=== PATIENT | female | born 1985 | race Asian ===

== ENCOUNTER 2019-05-23 14:40 | Inpatient (IN) | payer BC, OTHER ==
[2019-05-23 16:05] VITALS: BMI 25.4
[2019-05-23 17:03] LABS: BASO % 0.4 % (0-2.0); EOS % 0.7 % (0-4.5); HEMATOCRIT 34.7 % (32.4-45.2); HEMOGLOBIN 11.3 GM/dL (10.7-15.3); LYMPH % 11.4 % (8-40); MCH 26.6 pg (25.7-33.7); MCHC 32.6 g/dl (32.0-36.0); MEAN CELL VOLUME 81.6 fl (80-96); MEAN PLT VOLUME 7.8 fl (7.5-11.1); MONO % 6.6 % (3.8-10.2); NEUT % 80.9 % (42.8-82.8); PLATELET COUNT 262 K/MM3 (134-434); RBC 4.25 M/mm3 (3.60-5.2); RDW 24.7 % (11.6-15.6); WHITE BLOOD COUNT 9.5 K/mm3 (4.0-10.0)
[2019-05-23 17:22] LABS: INR 0.89 (0.83-1.09); PROTHROMBIN TIME (PATIENT) 10.5 SEC (9.7-13.0)
[2019-05-23 17:25] LABS: ACTIVATED PTT 28.6 SECONDS (25.2-36.5)
[2019-05-23 17:26] LABS: BLOOD UREA NITROGEN 11.4 mg/dL (7-18); CALCIUM 8.3 mg/dL (8.5-10.1); CREATININE 0.5 mg/dL (0.55-1.3); POTASSIUM 3.9 mmol/L (3.5-5.1)
[2019-05-23] MEDS ORDERED: ELECTROLYTE-148 SOLN 500 ML IV SCH (18:30)
[2019-05-23] MEDS ORDERED: CITRIC ACID/SODIUM CITRATE 30 ML UNIT-DOSE CUP PO ONE (18:30)
[2019-05-23] MEDS ORDERED: ELECTROLYTE-148 SOLN 1,000 ML IV SCH (19:00)
[2019-05-23 19:09] LABS: ANISOCYTOSIS 3+; MACROCYTOSIS 0
--- NOTE | 2019-05-23 20:24 | HP ---
Past Medical History - Admission Chief Complaint: iugr 5 %, twin for c section History of Present Illness: none History Source: Patient Limitations to Obtaining History: No Limitations - Past Medical History PARAKEET RAISER: No: Alzheimer's, CVA, Dementia, Migraine, Multiple Sclerosis, Peripheral Neuropathy, Parkinson's, Seizure, Syncope, TIA, Vertigo, Other Cardiovascular: No: AFIB, Aneurysm, Aortic Insufficiency, Aortic Stenosis, CAD, CHF, Deep Vein Thrombosis, HTN, Hyperlipdemia, CA, Mitral Insufficiency, Mitral Stenosis, Murmur, Pulmonary Hypertension, Other Pulmonary: No: Asthma, Bronchitis, Cancer, COPD, O2 Dependent, Pneumonia, Previously Intubated, Pulmonary Embolus, Pulmonary Fibrosis, Sleep Apnea, Other Gastrointestinal: No: Ascites, Cancer, Constipation, Crohn's Disease, Diverticulitis, Diverticulosis, Esophageal Varices, Gastritis, GERD, GI Bleed, Hemorrhoids, Hiatal Hernia, Inflamatory Bowel Disease, Irritable Bowel Disease, Pancreatitis, Peptic Ulcer Disease, Ulcerative Colitis, Other Hepatobiliary: No: Cirrhosis, Cholelithiasis, Cholecystitis, Choledocholithiasis , Hepatitis A, Hepatitis B, Hepatitis C, Other Renal/: No: Renal Failure, Renal Inusuff, BPH, Cancer, Hematuria, Hemodialysis , Neurogenic Bladder, Renal Calculi, UTI, Other Reproductive: No: Ectopic , Endometriosis, Fibroids, PID, Polycystic Ovary Syndrome, Postmenopausal, Other ...: 1 ...Para: 0 ...Term: 0 ...: 0 ...Spon : 0 ...Induced : 0 ...Multiple Gestation: 0 ...LMP: 09/17/18 ... Weeks Gestation by Dates: 34.6 ...EDC by Dates: 06/28/19 ...EDC by Sono: 06/27/19 Heme/Onc: No: Anemia, B12 Deficiency, Bleeding Disorder, Cancer, Current Chemotherapy, Current Radiation Therapy, Hemochromatosis, Hypercoaguable State, Myeloproliferative Synd, Sickle Cell Disease, Sickle Cell Trait, Thrombocytopenia, Other Infectious Disease: No: AIDS, C-Diff, Herpes Zoster, HIV, MRSA, STD's, Tuberculosis, VREF, Other Psych: No: Addictions, Anxiety, Bipolar, Depression, Panic, Psychosis, Schizophrenia, Other Musculoskeletal: No: Bursitis, Chronic low back pain, Hemiparesis, Hemiplegia, Osteoarthritis, Paraplegia, Other Rheumatology: No: Fibromyalgia, Gout, Lupus, Rheumatoid Arthritis, Sarcoidosis, Vasculitis, Other ENT: No: Allergic Rhinitis, Sinusitis, Other Endocrine: No: Carlos's Disease, Gravelly's Disease, Diabetes Insipidus, Diabetes Mellitus, Hyperparathyroidism, Hyperthyroidism, Hypothyroidism, Osteopenia, SIADH, Other Dermatology: No: Basal Cell, Cellulitis, Eczema, Melanoma, Psoriasis, Squamous Cell, Other - Past Surgical History Past Surgical History: No: None, AAA Repair, AICD, Amputation, Appendectomy, Arthrosocopy, AV Fistula/Graft, Bariatric Surgery, Breast Biopsy, Bypass, CABG, Carotid Endarterectomy, Cataract Removal, Cholecystectomy, Colectomy, Colonoscopy, Colostomy, Craniotomy, , Cystectomy, Hernia Repair, Hysterectomy, Ileal Conduit, Ileosotomy, Joint Replacement, Kidney Transplant, Laminectomy, Liver Transplant, Mastectomy, Nephrectomy, Oopherectomy, Orchiectomy, Permanent Pacemaker, Prostatectomy, Splenectomy, Stent, Thoracotomy , TURP, Tonsillectomy, Tubal Ligation, Upper Endoscopy, Valve Replacement, Vasectomy, Vein Stripping/Ligation Hx Myomectomy: No Hx Transabdominal Cerclage: No - Advance Directives Advance Directives: Yes: Health Care Proxy - Smoking History Smoking history: Never smoked Have you smoked in the past 12 months: No - Alcohol/Substance Use Hx Alcohol Use: No History of Substance Use: reports: None - Social History Usual Living Arrangement: Yes: With Spouse Do you think of yourself as: Straight/Heterosexual ADL: Independent History of Recent Travel: No Home Medications - Allergies Allergies/Adverse Reactions: Allergies Allergy/AdvReac Type Severity Reaction Status Date / Time No Known Allergies Allergy Verified 05/07/19 14:45 - Home Medications Home Medications: Ambulatory Orders Ferrous Sulfate [Feosol] 325 mg PO DAILY 05/07/19 Pnv No.95/Ferrous Fum/Folic AC [ Vitamin Tablet] 1 each PO DAILY Family Medical History Family History: Denies Review of Systems - Review of Systems Constitutional: reports: No Symptoms Eyes: reports: No Symptoms HENT: reports: No Symptoms Neck: reports: No Symptoms Cardiovascular: reports: No Symptoms Respiratory: reports: No Symptoms Gastrointestinal: reports: No Symptoms Genitourinary: reports: No Symptoms Breasts: reports: No Symptoms Reported Musculoskeletal: reports: No Symptoms Integumentary: reports: No Symptoms Neurological: reports: No Symptoms Endocrine: reports: No Symptoms Hematology/Lymphatic: reports: No Symptoms Psychiatric: reports: No Symptoms Physical Exam - Maternity Vital Signs: Vital Signs Temperature 98.7 F 05/23/19 19:47 Pulse Rate 92 H 05/23/19 19:47 Respiratory Rate 05/23/19 19:47 Blood Pressure 129/77 05/23/19 19:47 O2 Sat by Pulse Oximetry (%) Constitutional: Yes: Well Nourished, No Distress, Calm Eyes: Yes: WNL, Conjunctiva Clear, EOM Intact HENT: Yes: WNL, Atraumatic, Normocephalic Neck: Yes: WNL, Supple, Trachea Midline Cardiovascular: Yes: WNL, Regular Rate and Rhythm Lungs: Clear to auscultation Breast(s): Yes: WNL - Abdominal Exam/OB Number of Fetuses: Multiple Presentation: Vertex, Breech Contractions: Yes Regularity: Regular Intensity: Mild/Mod Monitor Mode: External Heart Rate Location: [facility] Category: I Accelerations: Uniform Decelerations: None - Vaginal Exam/OB Vaginal Bleediing: No Speculum Exam: No Dilatation (cm): 1 Effacement (%): 50 Amniotic Membrane Status: Intact Presentation: Jj Breech Station: -2 - Physical Exam Musculoskeletal: Yes: WNL Extremities: Yes: WNL Edema: Yes Edema: LUE: 1+, RUE: 1+, LLE: 1+, RLE: 1+ Integumentary: Yes: WNL Deep Tendon Reflex Grade: Normal +2 ...Motor Strength: WNL Psychiatric: Yes: WNL, Alert, Oriented - Labs Lab Results: CBC, BMP 05/23/19 16:10 05/23/19 16:10 Hemorrhage Risk Assessment - Risk Factors Medium Risk Factors: Yes: Multiple gestation High Risk Factors: Yes: None Risk Score: 1 Risk Level: Medium Risk Assessment/Plan for c section per dr jackman, iugr 4 %, no growth x 1to 2 weeks
[2019-05-23] MEDS ORDERED: morphine SULFATE/PF 0.5 MG/ML (2cc Syringe - QUVA) ONE (21:52)
[2019-05-23] MEDS ORDERED: KETOROLAC TROMETHAMINE 30 MG/1 ML VIAL ONE (21:53)
[2019-05-23] MEDS ORDERED: PHENYLEPHRINE HCL 10 MG/1 ML SINGLE DOSE VIAL ONE (21:53)
[2019-05-23] MEDS ORDERED: OXYTOCIN 10 UNITS/ML VIAL ONE (21:53)
[2019-05-23] MEDS ORDERED: morphine SULFATE/PF 0.5 MG/ML (2cc Syringe - QUVA) EP ONE (22:00)
[2019-05-23] MEDS ORDERED: ceFAZolin SODIUM 1 GM VIAL ONE (22:08)
[2019-05-23] MEDS ORDERED: OXYTOCIN 20 UNITS in 0.9% NS 20 UNIT/1,000 ML INFUS.BAG IV ONE (23:05)
[2019-05-23] MEDS ORDERED: ONDANSETRON 4 MG/2 ML VIAL IVPUSH PRN (23:09)
[2019-05-23] MEDS ORDERED: ACETAMINOPHEN 1000 MG/100 ML VIAL (NON FORMULARY) IVPB ONE (23:11)
[2019-05-23] MEDS ORDERED: LACTATED RINGERS SOLUTION 1,000 ML IV SCH (23:15)
[2019-05-23] MEDS ORDERED: oxyCODONE HCL 5 MG TABLET PO PRN ×2 (23:25)
[2019-05-23] MEDS ORDERED: METHYLERGONOVINE MALEATE 0.2 MG/1 ML AMP IM PRN (23:25)
[2019-05-23] MEDS ORDERED: SENNOSIDES/DOCUSATE COMBO (SENNA PLUS) TABLET (UD) PO PRN (23:25)
[2019-05-23] MEDS ORDERED: IBUPROFEN 800 MG/8 ML IJ IVPB PRN (23:25)
--- NOTE | 2019-05-23 23:25 | OP ---
Operative Note - Note: Operative Date: 05/23/19 Pre-Operative Diagnosis: discordant, iugr, twin. malpresentation Operation: primary lt c s Findings: vx, double footling breech Post-Operative Diagnosis: Same as Pre-op Surgeon: Sammy Nunez Mining Detail Draftsperson: Franklin Paz Anesthesiologist/WOOD PATTERN MAKER: Janie Castro Anesthesia: Spinal Estimated Blood Loss (mls): 700 (no complications, ) Operative Report Dictated: Yes
[2019-05-23] MEDS ORDERED: OXYTOCIN 20 UNITS in 0.9% NS 20 UNIT/1,000 ML INFUS.BAG IV SCH (23:30)
[2019-05-24] MEDS ORDERED: ACETAMINOPHEN INJECTION 100 ML IVPB ONE (00:24)
[2019-05-24 08:08] LABS: BASO % 0.4 % (0-2.0); EOS % 0.4 % (0-4.5); HEMATOCRIT 30.9 % (32.4-45.2); HEMOGLOBIN 10.2 GM/dL (10.7-15.3); LYMPH % 11.4 % (8-40); MCH 26.8 pg (25.7-33.7); MCHC 33.1 g/dl (32.0-36.0); MEAN CELL VOLUME 81.1 fl (80-96); MEAN PLT VOLUME 7.5 fl (7.5-11.1); NEUT % 81.8 % (42.8-82.8); PLATELET COUNT 214 K/MM3 (134-434); RBC 3.81 M/mm3 (3.60-5.2); RDW 24.4 % (11.6-15.6); WHITE BLOOD COUNT 10.7 K/mm3 (4.0-10.0)
--- NOTE | 2019-05-24 08:52 | PN ---
Progress Note (short form) - Note Progress Note: Post op day#1.S/P C Section under spinal anesthesia with Duramorph uneventful.Patient stable and has little pain for which she is on medication.No any anesthesia related problem.Patient Dc from the anesthesia care.
[2019-05-24 09:01] LABS: RPR NONREACTIVE (NONREACTIVE)
[2019-05-24] MEDS: ENOXAPARIN NA (PORCINE) 40 MG/0.4 ML DISP.SYRIN SQ SCH (10:02)
[2019-05-24] MEDS: SIMETHICONE 80 MG TAB.CHEW (FP) PO PRN ×2 (12:20→17:14)
[2019-05-24] MEDS: ACETAMINOPHEN 325 MG TABLET (FP) PO PRN ×2 (12:20→17:14)
[2019-05-24] MEDS: IBUPROFEN 600 MG TABLET (FP) PO PRN (17:14)
--- NOTE | 2019-05-24 17:18 | PN ---
Post Progress Note Post Day: 1 Type of Delivery: Primary C/S Vital Signs: Vital Signs Temperature 98.0 F 05/24/19 06:00 Pulse Rate 91 H 05/24/19 06:00 Respiratory Rate 18 05/24/19 09:00 Blood Pressure 127/75 05/24/19 06:00 O2 Sat by Pulse Oximetry (%) 100 05/23/19 23:50 Breast Exam: Yes: Soft Uterus: Yes: Fundus Firm, Fundus below umbilicus, Non-tender Incision: Yes: Dressing dry and intact, Sutures intact Abdomen/GI: Yes: Abdomen soft, Passing flatus, Tolerating PO Lochia: Yes: Serosa Lochia, amount: Small Extremities: Yes: Calves non-tender Perineum: Yes: Intact Activity: Ambulating (oob as much as possible ) - Labs Labs: CBC WBC 10.7 K/mm3 (4.0-10.0) H 05/24/19 06:55 RBC 3.81 M/mm3 (3.60-5.2) 05/24/19 06:55 Hgb 10.2 GM/dL (10.7-15.3) L 05/24/19 06:55 Hct 30.9 % (32.4-45.2) L 05/24/19 06:55 MCV 81.1 fl (80-96) 05/24/19 06:55 MCH 26.8 pg (25.7-33.7) 05/24/19 06:55 MCHC 33.1 g/dl (32.0-36.0) 05/24/19 06:55 RDW 24.4 % (11.6-15.6) H 05/24/19 06:55 Plt Count 214 K/MM3 (134-434) 05/24/19 06:55 MPV 7.5 fl (7.5-11.1) 05/24/19 06:55 Absolute Neuts (auto) 8.8 K/mm3 (1.5-8.0) H 05/24/19 06:55 Neutrophils % 81.8 % (42.8-82.8) 05/24/19 06:55 Lymphocytes % 11.4 % (8-40) 05/24/19 06:55 Monocytes % 6.0 % (3.8-10.2) 05/24/19 06:55 Eosinophils % 0.4 % (0-4.5) 05/24/19 06:55 Basophils % 0.4 % (0-2.0) 05/24/19 06:55 Nucleated RBC % 0 % (0-0) 05/24/19 06:55 Hypochromia 0 05/23/19 16:10 Polychromasia 3+ 05/23/19 16:10 Poikilocytosis 0 05/23/19 16:10 Anisocytosis 3+ 05/23/19 16:10 Microcytosis 3+ 05/23/19 16:10 Macrocytosis 0 05/23/19 16:10
--- NOTE | 2019-05-24 18:33 | OP ---
DATE OF OPERATION: 05/23/2019 PREOPERATIVE DIAGNOSIS: Discordant intrauterine growth retardation twins, malpresentation, vertex and breech, and twin in labor ahsan every 3 minutes. PROCEDURE: Primary low transverse section. POSTOPERATIVE DIAGNOSIS: Vertex and double footling breech presentation and intrauterine growth retardation discordant. SURGEON: Sammy Nunez MD MECHANICAL DESIGN TECHNICIAN: MARÍA Monroe. No other doctors available in house. ANESTHESIA: Brandon Foster MD. Spinal anesthesia. INDICATIONS: A 33-year-old female patient twin gestation, dichorionic, diamniotic twin has been followed up with perinatologist, Dr. Aparicio, and patient has been known to have an IUGR baby less than 10 percentile; however, in the past 2-3 weeks, twin A has not grown in the past 2 weeks and remains the same, less than 5%. According to the perinatologist, since the baby twin A was not growing and was discordant then patient was advised to be delivered, and patient is already having signs of a premature labor with ahsan. Patient 2 weeks ago was ahsan already, so patient was in the hospital at that time. Patient received betamethasone for maturity so patient was prepped with lung optimization. Ketamine was sent up today from the perinatologist's office, patient was found to have contractions every 3 minutes, and patient does feel some of these contractions. Pain level is 6/10 now, so decision was made to take the patient to the OR as soon as possible for a C section; however, at this time, there is no other doctor as data control assistant available, but the patient is in need of urgency to be done as soon as possible, so Franklin DANIEL was called in, and he came for assist the section. DESCRIPTION OF PROCEDURE: Patient was placed on the operating room in supine position after the spinal anesthesia was obtained then patient's abdomen and pelvis were prepped and draped in the usual sterile manner. A Pfannenstiel incision was made. Incision was made through the skin and subcutaneous tissue until the fascia was nicked in the midline. The fascia was extended bilaterally. Intraperitoneal cavity was entered. Bladder flap was not created. Low transverse segment of the uterus was entered. Baby twin A was delivered from vertex presentation. Baby was handed over to borematic operator after umbilical cord doubly clamped and cut. A second baby artificial rupture of membranes was done. At this time, twin B was extracted by double-footling breech presentation, and the baby was handed over to borematic operator after umbilical cord doubly clamped and cut. Twin B double-footling breech presentation. The head had a little difficulty being extracted out of the uterus probably due to the contraction of the uterus, but no trauma was done and baby's head came out after slight maneuver process. No complications. Patient tolerated procedure well. Baby was given to the borematic operator after umbilical cord doubly clamped and cut, and the placenta was removed. Uterus closed in single layer, first layer interlocking Vicryl sutures. Good hemostasis. Both gutters were clean. Both ovaries, fallopian tubes, uterus are within normal limits. No complications. Patient tolerated the procedure well. Both gutters were clean. Draining clear urine. Blood loss about 700 mL. Peritoneum was closed. Fascia was closed. Skin was closed. Transferred to recovery room in stable condition. MD CARLIE SELLERS/[id number]
[2019-05-24] MEDS ORDERED: BISACODYL 10 MG SUPP.RECT RC PRN (23:26)
[2019-05-25] MEDS: SIMETHICONE 80 MG TAB.CHEW (FP) PO PRN ×3 (03:54→20:31)
[2019-05-25] MEDS: ACETAMINOPHEN 325 MG TABLET (FP) PO PRN ×3 (03:54→20:31)
[2019-05-25] MEDS: IBUPROFEN 600 MG TABLET (FP) PO PRN ×3 (03:54→20:31)
[2019-05-25] MEDS: ENOXAPARIN NA (PORCINE) 40 MG/0.4 ML DISP.SYRIN SQ SCH (10:00)
--- NOTE | 2019-05-25 14:56 | PN ---
Post Progress Note Post Day: 2 Type of Delivery: Primary C/S Vital Signs: Vital Signs Temperature 98.1 F 05/25/19 09:33 Pulse Rate 81 05/25/19 09:33 Respiratory Rate 18 05/25/19 09:33 Blood Pressure 125/86 05/25/19 09:33 O2 Sat by Pulse Oximetry (%) 100 05/23/19 23:50 Breast Exam: Yes: Soft Uterus: Yes: Fundus Firm, Fundus below umbilicus Incision: Yes: Dressing dry and intact, Sutures intact Abdomen/GI: Yes: Abdomen soft, Tolerating PO Lochia: Yes: Serosa Lochia, amount: Small Extremities: Yes: Calves non-tender Perineum: Yes: Intact Activity: Ambulating - Labs Labs: CBC WBC 10.7 K/mm3 (4.0-10.0) H 05/24/19 06:55 RBC 3.81 M/mm3 (3.60-5.2) 05/24/19 06:55 Hgb 10.2 GM/dL (10.7-15.3) L 05/24/19 06:55 Hct 30.9 % (32.4-45.2) L 05/24/19 06:55 MCV 81.1 fl (80-96) 05/24/19 06:55 MCH 26.8 pg (25.7-33.7) 05/24/19 06:55 MCHC 33.1 g/dl (32.0-36.0) 05/24/19 06:55 RDW 24.4 % (11.6-15.6) H 05/24/19 06:55 Plt Count 214 K/MM3 (134-434) 05/24/19 06:55 MPV 7.5 fl (7.5-11.1) 05/24/19 06:55 Absolute Neuts (auto) 8.8 K/mm3 (1.5-8.0) H 05/24/19 06:55 Neutrophils % 81.8 % (42.8-82.8) 05/24/19 06:55 Lymphocytes % 11.4 % (8-40) 05/24/19 06:55 Monocytes % 6.0 % (3.8-10.2) 05/24/19 06:55 Eosinophils % 0.4 % (0-4.5) 05/24/19 06:55 Basophils % 0.4 % (0-2.0) 05/24/19 06:55 Nucleated RBC % 0 % (0-0) 05/24/19 06:55 Hypochromia 0 05/23/19 16:10 Polychromasia 3+ 05/23/19 16:10 Poikilocytosis 0 05/23/19 16:10 Anisocytosis 3+ 05/23/19 16:10 Microcytosis 3+ 05/23/19 16:10 Macrocytosis 0 05/23/19 16:10 Assessment/Plan doing well , oob as much as possible
[2019-05-26] MEDS: IBUPROFEN 600 MG TABLET (FP) PO PRN ×5 (00:26→21:22)
[2019-05-26] MEDS: SIMETHICONE 80 MG TAB.CHEW (FP) PO PRN ×5 (00:26→21:22)
[2019-05-26] MEDS: ACETAMINOPHEN 325 MG TABLET (FP) PO PRN ×5 (00:27→21:22)
[2019-05-26] MEDS: ENOXAPARIN NA (PORCINE) 40 MG/0.4 ML DISP.SYRIN SQ SCH (09:26)
--- NOTE | 2019-05-26 17:35 | PN ---
Post Progress Note Post Day: 3 Type of Delivery: Primary C/S Vital Signs: Vital Signs Temperature 97.6 F 05/26/19 10:00 Pulse Rate 87 05/26/19 10:00 Respiratory Rate 20 05/26/19 10:00 Blood Pressure 113/65 05/26/19 10:00 O2 Sat by Pulse Oximetry (%) 100 05/23/19 23:50 Breast Exam: Yes: Soft Uterus: Yes: Fundus Firm, Fundus below umbilicus, Non-tender Incision: Yes: Dressing dry and intact, Sutures intact Abdomen/GI: Yes: Abdomen soft, Passing flatus, Tolerating PO Lochia: Yes: Serosa Lochia, amount: Small Extremities: Yes: Calves non-tender Perineum: Yes: Intact Activity: Ambulating (dcpt home tomorrow ) - Labs Labs: CBC WBC 10.7 K/mm3 (4.0-10.0) H 05/24/19 06:55 RBC 3.81 M/mm3 (3.60-5.2) 05/24/19 06:55 Hgb 10.2 GM/dL (10.7-15.3) L 05/24/19 06:55 Hct 30.9 % (32.4-45.2) L 05/24/19 06:55 MCV 81.1 fl (80-96) 05/24/19 06:55 MCH 26.8 pg (25.7-33.7) 05/24/19 06:55 MCHC 33.1 g/dl (32.0-36.0) 05/24/19 06:55 RDW 24.4 % (11.6-15.6) H 05/24/19 06:55 Plt Count 214 K/MM3 (134-434) 05/24/19 06:55 MPV 7.5 fl (7.5-11.1) 05/24/19 06:55 Absolute Neuts (auto) 8.8 K/mm3 (1.5-8.0) H 05/24/19 06:55 Neutrophils % 81.8 % (42.8-82.8) 05/24/19 06:55 Lymphocytes % 11.4 % (8-40) 05/24/19 06:55 Monocytes % 6.0 % (3.8-10.2) 05/24/19 06:55 Eosinophils % 0.4 % (0-4.5) 05/24/19 06:55 Basophils % 0.4 % (0-2.0) 05/24/19 06:55 Nucleated RBC % 0 % (0-0) 05/24/19 06:55 Hypochromia 0 05/23/19 16:10 Polychromasia 3+ 05/23/19 16:10 Poikilocytosis 0 05/23/19 16:10 Anisocytosis 3+ 05/23/19 16:10 Microcytosis 3+ 05/23/19 16:10 Macrocytosis 0 05/23/19 16:10
--- NOTE | 2019-05-26 17:39 | DS ---
Physical Exam-HOE RUNNER Vital Signs: Vital Signs Temperature 97.6 F 05/26/19 10:00 Pulse Rate 87 05/26/19 10:00 Respiratory Rate 20 05/26/19 10:00 Blood Pressure 113/65 05/26/19 10:00 O2 Sat by Pulse Oximetry (%) 100 05/23/19 23:50 Constitutional: Yes: Well Nourished, No Distress, Calm Eyes: Yes: WNL, Conjunctiva Clear, EOM Intact HENT: Yes: WNL, Atraumatic, Normocephalic Neck: Yes: WNL, Supple, Trachea Midline Cardiovascular: Yes: WNL, Regular Rate and Rhythm Respiratory: Yes: WNL, Regular, CTA Bilaterally Gastrointestinal: Yes: WNL, Normal Bowel Sounds, Soft ...Rectal Exam: Yes: WNL Renal/: Yes: WNL Pelvis: Yes: WNL External Genitalia: Yes: Normal Internal Exam Deferred: Yes Vaginal Exam: Yes: Normal Cervix: Yes: Normal Uterus: Yes: Normal Adnexa: Normal: Bilateral ....Post : Yes: Uterus firm, Uterus non-tender Breast(s): Yes: WNL Musculoskeletal: Yes: WNL Extremities: Yes: WNL Edema: Yes Edema: LUE: 1+, RUE: 1+, LLE: 1+, RLE: 1+ Integumentary: Yes: WNL Wound/Incision: Yes: Clean/Dry, Well Approximated Neurological: Yes: WNL, Alert, Oriented ...Motor Strength: WNL Psychiatric: Yes: WNL, Alert, Oriented Labs: CBC, BMP 05/24/19 06:55 05/23/19 16:10 Delivery - Delivery Section: Primary Type of Anesthesia: Spinal Episiotomy/Laceration: None EBL (cc): 700 Delivery, Single - Spencer Feeding Plan Initial Plan: Exclusive throughout hospitalization Delivery, Multiple Births - Stages of Labor Placenta/Membranes "A" Date: 05/23/19 Time: 22:19 Delivery Baby "B" Date: 05/23/19 Time: 22:19 - Condition of Multiple Births Spencer 1 (A) Roller Pneumatic/Satellite Communications Operator Present: Yes Roller Pneumatic: Carie Carballo Infant Gender: Female Weight: 1.588 kg Position: Left, OA Total Hours ROM (HRS/MINS): 4min 2 (B) Roller Pneumatic/Satellite Communications Operator Present: Yes Roller Pneumatic: Carie Carballo Gender: Male Weight: 2.183 kg Total Hours ROM (HRS/MINS): 4min - 1 (A) Score: 9 1 (A) 1 Minute Score: 9 Spencer 1 (A) 5 Minutes Score: 9 2 (B) 1 Minute Score: 7 Spencer 2 (B) 5 Minutes Score: 9 Discharge Summary Problems reviewed: Yes Reason For Visit: TWINS Procedures: Principal: primary lt c s Other Procedures: none Hospital Course: uneventful Health Concerns: none Plan of Treatment: oob as much as possible Goals: return to work in 8 weeks Condition: Good - Instructions Diet, Activity, Other Instructions: Physical activity Resume your normal everyday activity as tolerated no heavy lifting or exercise until seen by your surgeon. You may walk unlimited renate of and climb stairs. You may resume driving the car when you feel safe and comfortable behind the wheel. No sexual activity as instructed. Wound care If you have a bandage, leave it on, and keep dry for 48-72 hours. After that time discard the outer bandage. If they are tapes on the skin under the out of bandage leave them in place. They will peel off in the next 7 to 10 days. Do Not Peel them off. You may shower the day after surgery. If there are tapes present on the skin, you may shower over them. Diet There are no dietary restrictions. Eat healthy, high-fiber foods. Drink 6 to 8 glasses of liquid each day. This will assist in keeping your bowels are regular. Pain management You may take Tylenol or acetaminophen or Ibuprofen (for example, Motrin, Advil etc.) from my pain prescription medication is ordered should be taken as prescribed for moderate to severe pain. Call MD for any of the following: call dr argueta for 2 weeks appointment Severe pain not relieved by medication Fever of 101 or higher Excessive bleeding or drainage on dressing Inability to urinate Disposition: HOME - Home Medications Comprehensive Discharge Medication List: Ambulatory Orders Ferrous Sulfate [Feosol] 325 mg PO DAILY 05/07/19 Pnv No.95/Ferrous Fum/Folic AC [ Vitamin Tablet] 1 each PO DAILY Prescription Drug Monitoring Program (I-STOP) results: I-STOP reviewed and no issues identified
[2019-05-26 21:13] VITALS: TEMP 98.4
[2019-05-27] MEDS: SIMETHICONE 80 MG TAB.CHEW (FP) PO PRN (08:17)
[2019-05-27] MEDS: IBUPROFEN 600 MG TABLET (FP) PO PRN (08:17)
[2019-05-27] MEDS: ACETAMINOPHEN 325 MG TABLET (FP) PO PRN (08:18)
[2019-05-27] MEDS: ENOXAPARIN NA (PORCINE) 40 MG/0.4 ML DISP.SYRIN SQ SCH (09:55)
[2019-05-27 11:27] VITALS: BP 118/59; PULSE 93
--- NOTE | 2019-05-27 14:42 | PN ---
Post Progress Note Post Day: 4 Type of Delivery: Primary C/S Vital Signs: Vital Signs Temperature 98.4 F 05/27/19 10:00 Pulse Rate 93 H 05/27/19 10:00 Respiratory Rate 18 05/27/19 10:00 Blood Pressure 118/59 L 05/27/19 10:00 O2 Sat by Pulse Oximetry (%) 100 05/23/19 23:50 Breast Exam: Yes: Soft Uterus: Yes: Fundus Firm Incision: Yes: Dressing dry and intact, Sutures intact Abdomen/GI: Yes: Abdomen soft, Passing flatus, Tolerating PO Lochia: Yes: Serosa Lochia, amount: Small Extremities: Yes: Calves non-tender Perineum: Yes: Intact Activity: Ambulating - Labs Labs: CBC WBC 10.7 K/mm3 (4.0-10.0) H 05/24/19 06:55 RBC 3.81 M/mm3 (3.60-5.2) 05/24/19 06:55 Hgb 10.2 GM/dL (10.7-15.3) L 05/24/19 06:55 Hct 30.9 % (32.4-45.2) L 05/24/19 06:55 MCV 81.1 fl (80-96) 05/24/19 06:55 MCH 26.8 pg (25.7-33.7) 05/24/19 06:55 MCHC 33.1 g/dl (32.0-36.0) 05/24/19 06:55 RDW 24.4 % (11.6-15.6) H 05/24/19 06:55 Plt Count 214 K/MM3 (134-434) 05/24/19 06:55 MPV 7.5 fl (7.5-11.1) 05/24/19 06:55 Absolute Neuts (auto) 8.8 K/mm3 (1.5-8.0) H 05/24/19 06:55 Neutrophils % 81.8 % (42.8-82.8) 05/24/19 06:55 Lymphocytes % 11.4 % (8-40) 05/24/19 06:55 Monocytes % 6.0 % (3.8-10.2) 05/24/19 06:55 Eosinophils % 0.4 % (0-4.5) 05/24/19 06:55 Basophils % 0.4 % (0-2.0) 05/24/19 06:55 Nucleated RBC % 0 % (0-0) 05/24/19 06:55 Hypochromia 0 05/23/19 16:10 Polychromasia 3+ 05/23/19 16:10 Poikilocytosis 0 05/23/19 16:10 Anisocytosis 3+ 05/23/19 16:10 Microcytosis 3+ 05/23/19 16:10 Macrocytosis 0 05/23/19 16:10 Assessment/Plan dc pt home today
--- NOTE | 2019-05-29 17:09 | PATH ---
Surgical Pathology Report Patient Name: AL TOMLINSON [facility]. Rec. #: [id number] /Age/Gender: 1985 (Age: 33) / F Account: [id number] Location: [facility] OBS/TAILOR FITTER Taken: 05/23/2019 Received: 05/24/2019 Reported: 05/29/2019 Physicians: Sammy Nunez MD Specimen(s) Received PLACENTA Clinical History , 35 weeks gestation, twin , twin A SGA/IUGR Final Diagnosis TWIN PLACENTA, SECTION: 526 G DIAMNIOTIC DICHORIONIC FUSED DISC TWIN PLACENTA. PLACENTA A, THIRD TRIMESTER PLACENTA, TRIVASCULAR UMBILICAL CORD WITH VELAMENTOUS INSERTION, AND UNREMARKABLE PLACENTAL MEMBRANES. PLACENTA B, THIRD TRIMESTER PLACENTA WITH TRIVASCULAR UMBILICAL CORD AND UNREMARKABLE PLACENTAL MEMBRANES. Electronically Signed Pat Qureshi M.D. Gross Description Received in formalin labeled "placenta," is a 526 g twin placenta comprised of 2 fused discs, by dividing membranes. The placentas are undesignated. The specimen measures 22.5 x 7.0 x 2.5 cm. The dividing membranes are earl and opaque. The membranes are earl, translucent with focal opacities and insert marginally. Arbitrarily designated umbilical cord "A" measures 19 cm in length and averages 1.1 cm in diameter. The cord displays velamentous insertion. No new true knots or strictures are identified. Cut surface of the umbilical cord reveals 3 vessels. Arbitrarily designated umbilical cord "B" measures 23 cm in length and 0.9 cm in diameter. The cord inserts eccentrically, 5.5 cm to the nearest margin. No true knots or strictures are identified. Cut surface of the umbilical cord reveals 3 vessels. The surface is alexander blue with minimal fibrin deposition and appropriate caliber vessels. The maternal surface is red brown with multifocal defects. Sectioning reveals red-brown, spongy parenchyma. No lesions are identified. [employer] sections are submitted in 7 cassettes as follows: 1-arbitrarily designated placenta "A" membrane roll and umbilical cord; 2-3-full thickness sections of arbitrarily designated placenta "A"; 4-dividing membranes; 5-arbitrarily designated placenta "B" membrane roll and umbilical cord; 6-7-full thickness sections of placenta "B". 05/28/2019 [facility]05/28/2019
== END 2019-05-27 14:45 | disposition home or self-care (01) | DRG 788 ==
LOC: JLDR 14:40 → J3W 05-24 00:28
PROVIDERS: ADMIT Obstetrics & Gynecology; ATTEND Obstetrics & Gynecology
PROC: 10D00Z1 Extraction of Products of Conception, Low, Open Approach (ICD-10-PCS; principal; 2019-05-23)
DX: O30.043 Twin pregnancy, dichorionic/diamniotic, third trimester (principal); O32.8XX2 Maternal care for other malpresentation of fetus, fetus 2; O36.5931 Maternal care for other known or suspected poor fetal growth, third trimester, fetus 1; O36.5932 Maternal care for other known or suspected poor fetal growth, third trimester, fetus 2; Z3A.34 34 weeks gestation of pregnancy; Z37.2 Twins, both liveborn
CPT/HCPCS: 36415; 80048; 85025; 85610; 85730; 86593; 86850; 86900; 86901; 87389; 88307-TC; J0131